=== PATIENT | female | born 1985 | race Caucasian/White ===

== ENCOUNTER 2021-04-10 09:45 | Emergency (ER) | payer SELFPAY ==
[2021-04-10 10:07] VITALS: BP 135/95; PULSE 82; RESP 18; TEMP 36.3; O2SAT 100
--- NOTE | 2021-04-10 10:24 | ED.SKABFB ---
HPI - Skin/Abscess/Foreign Bdy General Chief complaint: Skin/Abscess/Foreign Body Stated complaint: STEPPED ON A NAIL AND THUMB NAIL Mode of arrival: ambulatory History of Present Illness HPI narrative: this is a 36-year-old female that presents with 1 day history of stepping on a nail that went through her boot and punctured the bottom of her left foot currently there is no bleeding no erythema, the patient is not up-to-date with her tetanus, there is currently no fever chills, and this morning she was hammering in a board hit her left thumbnail causing it to dislodge and there is small area that still is lodged to her skin, currently no bleeding no numbness or tingling it is tender to palpation. complaint: other ( puncture wound) Onset (ago): day(s) Tetanus up to date: no Location: L hand, LLE and L foot Severity: mild Related Data Allergies Allergy/AdvReac Type Severity Reaction Status Date / Time No Known Allergies Allergy Verified 04/10/21 10:06 Review of Systems Review of Systems: All systems reviewed & are unremarkable except as noted in HPI and below PMFSH Past Medical History Medical History Patient denies medical problems Exam Const: General: no acute distress Orientation/consciousness: patient oriented x3 HENMT: Head: normal to inspection Eyes: Conjunctivae: conjunctivae normal Pupils: Equal, round and reactive pupils present EOM: EOMs intact bilaterally Neck: Neck: normal visual inspection, no lymphadenopathy and no meningeal signs Chest: Chest palpation & inspection: normal inspection of the chest Resp: Effort & Inspection: normal respiratory effort Auscultation: clear to auscultation bilaterally Cardio: Rate: regular rate Rhythm: regular rhythm GI: GI Palp: Yes Soft to palpation Percussion: Yes normal to percussion Back/Spine/Pelvis: Back: no CVA tenderness Skin: Other: small lesion plantar surface of her left foot from IOP puncture wound from a nail went through her boot, and dislodged from nail currently no bleeding no numbness or tingling but is tender to touch. Neuro: General: patient oriented x3, moves all extremities, no meningeal signs and no focal motor deficits Psych: Mental Status: mental status grossly normal Affect: normal affect Course Course Emergency Course: Patient got updated with her tetanus vaccine, a g of ceftriaxone was given as splint was placed on the left thumb. Vital Signs Vital signs: Vital Signs Temperature 36.3 C L 04/10/21 10:07 Pulse Rate 82 04/10/21 10:07 Respiratory Rate 18 04/10/21 10:07 Blood Pressure 135/95 H 04/10/21 10:07 Pulse Oximetry 100 04/10/21 10:07 Temperature 36.3 C L 04/10/21 10:07 Pulse Rate 82 04/10/21 10:07 Respiratory Rate 18 04/10/21 10:07 Blood Pressure 135/95 H 04/10/21 10:07 Pulse Oximetry 100 04/10/21 10:07 Critical Care Time Critical Care Time Critical Care Time: No Discharge Plan Discharge Clinical Impression: Puncture wound, Avulsion of nail Patient Disposition: Home, Self-Care Condition: Stable Instructions: Antibiotic Form, Puncture Wound (ED), Nail Removal (ED) Additional Instructions: take medicine as prescribed, can take Tylenol or Motrin and follow-up with primary care physician if symptoms persist or worsen. Prescriptions: New amoxicillin-pot clavulanate [Augmentin] 875-125 mg tablet 1 tablet PO Q12H Qty: 20 RF: 0 Follow-up/Referrals: UNKNOWN,DOCTOR [Primary Care Provider] - Time of Disposition: 10:30
[2021-04-10] MEDS: TETANUS,DIPHTHERIA,AC PERTUSSIS ADULT 0.5 ML (ADACEL) IM (10:36)
[2021-04-10] MEDS: cefTRIAXone 1 GM VIAL IM (10:36)
== END 2021-04-10 10:58 | disposition home or self-care (01) ==
PROVIDERS: Emergency Provider Emergency Medicine
DX: S91.332A Puncture wound without foreign body, left foot, initial encounter (principal); S61.102A Unspecified open wound of left thumb with damage to nail, initial encounter; W22.8XXA Striking against or struck by other objects, initial encounter
CPT/HCPCS: 90471; 90715; 96372; 99283; J0696

== ENCOUNTER 2021-12-19 13:08 | Emergency (ER) | payer SELFPAY ==
[2021-12-19 13:16] VITALS: BP 124/76; PULSE 93; RESP 14; TEMP 37.3; O2SAT 100
--- NOTE | 2021-12-19 14:22 | ED.URI ---
HPI - URI/Sore Throat General Chief Complaint: Upper Respiratory Infection Stated Complaint: Sore Throat Time Seen by Provider: 12/19/21 14:10 Source: patient, RN notes reviewed and old records reviewed History of Present Illness HPI Narrative: 46-year-old female who presents to [facility] with complaints of sore throat since Saturday. Patient states that she did have a fever Saturday with chills and sweats did not measure since she was out of town. Patient states Saturday night she had emesis x3. Patient reports she has been taking ibuprofen for her discomfort.Patient denies any ear pain no cough, some sinus congestion with drainage noted. Patient has not had COVID vaccination or flu shot. MD elicited complaint: fever and sore throat Pain scale (0-10): 6 Treatments prior to arrival: ibuprofen Related Data Allergies Allergy/AdvReac Type Severity Reaction Status Date / Time No Known Allergies Allergy Verified 12/19/21 13:25 Review of Systems Review of Systems: CONSTITUTIONAL: Reports fever, chills, or sweats. EYES: Denies visual changes, redness, or discharge. ENT: Positive for rhinorrhea, congestion, positive sore throat, no otalgia. CARDIOVASCULAR: Denies chest pain, palpitations, or edema. RESPIRATORY: Denies cough or dyspnea. GASTROINTESTINAL: Denies abdominal pain, positive episodes of nausea, vomiting, denies diarrhea. GENITOURINARY: Denies dysuria or hematuria. SKIN: Denies rash or itching. MUSCULOSKELETAL: Denies back pain, joint pain, or myalgia. NEUROLOGIC: Denies headache, numbness, or weakness. PSYCHIATRIC: Denies anxiety or depression. [facility] Past Medical History Medical History Patient denies medical problems Comments At time of signature, agree with nursing past medical, surgical, social and family history. There is no relevant family history pertinent to the presenting complaint Exam Narrative: GENERAL: ill-appearing, well-nourished, and in no acute distress. HEAD: Normocephalic, atraumatic. EYES: PERRLA and EOMI. ENT: Nares red with clear rhinorrhea no epistaxis. Mucous membranes moist. TMs normal with no light reflex, throat red no lesions or exudates tonsils red swollen and painful swallowing NECK: Supple. Lymphadenopathy CHEST: Clear to auscultation. No respiratory distress. SaO2 100% on room air no tachypnea HEART: Regular rate and rhythm. No murmur heard. Normal peripheral pulses. ABDOMEN: Soft, nontender, nondistended, normal active bowel sounds. EXTREMITIES: Normal range of motion. No edema. SKIN: Warm, dry, no rash. NEURO: No focal deficits. Alert and oriented x3. Course Course Level of Care: Express Care Visit Vital Signs Vital signs: Vital Signs Temperature 37.3 C 12/19/21 13:16 Pulse Rate 93 12/19/21 13:16 Respiratory Rate 14 12/19/21 13:16 Blood Pressure 124/76 12/19/21 13:16 Pulse Oximetry 100 12/19/21 13:16 Oxygen Delivery Room Air 12/19/21 13:16 Temperature 37.3 C 12/19/21 13:16 Pulse Rate 93 12/19/21 13:16 Respiratory Rate 14 12/19/21 13:16 Blood Pressure 124/76 12/19/21 13:16 Pulse Oximetry 100 12/19/21 13:16 Oxygen Delivery Room Air 12/19/21 13:16 MDM - URI/Sore Throat Differential Diagnosis Differential diagnosis: Likely upper respiratory infection, viral infection, pharyngitis and other (Strep pharyngitis, tonsillitis) Medical Records Attestation: I reviewed the patient's medical records. Lab Data Attestation: I reviewed the patient's lab results. Lab results narrative: Strep screen negative, COVID negative Influenza A negative Influenza B negative Labs: Lab Results 12/19/21 Range/Units 14:33 POC SARS CoV-2 Ag Negative (Negative) Strep Screen Presumptive Negative *(Reference Range: Negative)* Critical Care Time Critical Care Time Critical Care Time: No Discharge Plan Discharge Clinical
== END 2021-12-19 15:11 | disposition home or self-care (01) ==
PROVIDERS: Emergency Provider Registered Nurse
DX: J06.9 Acute upper respiratory infection, unspecified (principal); J03.90 Acute tonsillitis, unspecified; Z20.822 Contact with and (suspected) exposure to COVID-19
CPT/HCPCS: 87081; 87426; 87804; 87880; 99213; C9803; G0463

== ENCOUNTER 2022-11-17 08:37 | Emergency (ER) | payer OTHER, SELFPAY ==
--- NOTE | ~2022-11-17 | CT_ITS ---
EXAMINATION: CT chest abdomen pelvis wo con DATE: 11/17/2022 10:16 INDICATION: Left-sided chest and abdominal pain TECHNIQUE: Transaxial computed tomographic images of the chest, abdomen, and pelvis were obtained wit hout intravenous contrast. The dose-length product (DLP) was 664.20 mGy-cm. Automated exposure contro l and iterative reconstruction technique were employed. COMPARISON: None FINDINGS: CHEST CT: Evaluation is limited by the absence of intravenous contrast. The lungs are free of acute opacities. No pleural effusion or pneumothorax. There is a 5 mm nodule of the right lower lobe, likely old granu lomatous disease. No pathologically enlarged thoracic lymph nodes are identified. The heart size is n ormal. Subtle soft tissue density in the anterior mediastinum likely reflects residual thymus. Bilate ral breast implants are noted. ABDOMEN/PELVIS CT: Evaluation of the abdomen and pelvis is limited by the absence of intravenous contrast. There is a 15 mm linear hyperdensity in the right hepatic lobe. The spleen, pancreas, gallbladder, and adrenal gla nds are normal. The kidneys are unremarkable. No pathologically enlarged abdominal or pelvic lymph no paty are identified. No free intraperitoneal gas or evidence of bowel obstruction. There is subcutaneo us bruising in the left lower quadrant. The appendix is normal. There are small cysts of the ovaries. There is moderate lumbar spondylosis at L5-S1. A fat-containing umbilical hernia is noted. IMPRESSION: 1. Linear hyperdensity of the right hepatic lobe of unclear etiology. Evaluation is limited by the ab sence of intravenous contrast. Follow-up contrast-enhanced CT is recommended. 2. No acute findings of the thorax, sensitivity limited by the absence of intravenous contrast. Reviewed, dictated and finalized at location A. IMPRESSION: 1. Linear hyperdensity of the right hepatic lobe of unclear etiology. Evaluatio n is limited by the absence of intravenous contrast. Follow-up contrast-enhance d CT is recommended. 2. No acute findings of the thorax, sensitivity limited by the absence of intra venous contrast.
--- NOTE | ~2022-11-17 | XR_ITS ---
EXAMINATION: XR knee LT 3V DATE: 11/17/2022 10:15 INDICATION: Left knee pain TECHNIQUE: Three views of the left knee were obtained. COMPARISON: None. FINDINGS: Alignment is normal. No fracture or osteochondral lesion. Joint spaces are normal with no e rosions. No joint effusion/synovitis. There is soft tissue swelling of the knee. IMPRESSION: 1. No acute osseous abnormality. Reviewed, dictated and finalized at location A.
--- NOTE | ~2022-11-17 | XR_ITS ---
EXAMINATION: XR wrist RT min 3V INDICATION: Right wrist pain TECHNIQUE: Four views of the right wrist are obtained. COMPARISON: None available FINDINGS: No fracture, dislocation, or subluxation of the wrist. The wrist soft tissues are unremarka ble. A comminuted intra-articular fracture is noted at the base of the fifth proximal phalanx. IMPRESSION: 1. No acute osseous abnormality of the wrist. 2. Comminuted intra-articular fracture at the base of the fifth proximal phalanx Reviewed, dictated and finalized at location A. IMPRESSION: 1. No acute osseous abnormality of the wrist. 2. Comminuted intra-articular fracture at the base of the fifth proximal phalan x
--- NOTE | ~2022-11-17 | XR_ITS ---
EXAMINATION: XR hand RT min 3V INDICATION: Right hand pain, initial encounter TECHNIQUE: Three views of the right hand are obtained on four radiographs. COMPARISON: None available FINDINGS: There is an acute, traumatic, closed, comminuted fracture at the base and shaft of the fift h proximal phalanx which involves the fifth metacarpophalangeal joint. Soft tissue swelling surrounds the fractures. No additional fracture is identified. IMPRESSION: 1. Comminuted intra-articular fracture at the base of the fifth proximal phalanx. Reviewed, dictated and finalized at location A. IMPRESSION: 1. Comminuted intra-articular fracture at the base of the fifth proximal phalan x.
[2022-11-17 08:47] VITALS: BP 106/80; PULSE 94; RESP 20; TEMP 36.8; O2SAT 100
[2022-11-17] MEDS: methocarbamoL 500 MG TABLET 1000 MG PO (09:36)
[2022-11-17] MEDS: ACETAMINOPHEN 500 MG TABLET 1000 MG PO (09:37)
[2022-11-17] MEDS: KETOROLAC (*BKC) 60 MG/2 ML VIAL IM (09:38)
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
[2022-11-17] MEDS: oxyCODONE HCL (*CRX) 5 MG TAB IR PO (11:28)
[2022-11-17] MEDS: ONDANSETRON HCL ODT 4 MG TABLET PO (11:28)
[2022-11-17 11:46] VITALS: BP 110/82; PULSE 81; RESP 18; TEMP 37; O2SAT 98
== END 2022-11-17 11:55 | disposition home or self-care (01) ==
PROVIDERS: Emergency Provider Emergency Medicine
DX: S62.616A Displaced fracture of proximal phalanx of right little finger, initial encounter for closed fracture (principal); S50.312A Abrasion of left elbow, initial encounter; S39.012A Strain of muscle, fascia and tendon of lower back, initial encounter; S20.212A Contusion of left front wall of thorax, initial encounter; S70.02XA Contusion of left hip, initial encounter; V29.888A Rider (driver) (passenger) of other motorcycle injured in other specified transport accidents, initial encounter
CPT/HCPCS: 71250; 73110; 73130; 73562; 74176; 96372; 99284; A4565; A9270; J1885